=== PATIENT | female | born 1970 ===

== ENCOUNTER 2020-08-21 06:44 | Observation (INO) ==
--- NOTE | 2020-08-09 15:55 | PAT Medication Instructions ---
Medication Instructions Date of Service August 09, 2020 Home Medications lisinopril 5 mg tablet 5 mg PO QAM meloxicam 7.5 mg tablet 7.5 mg PO QAM omega-3 fatty acids 1,000 mg capsule 1,000 mg PO QAM omeprazole 10 mg capsule,delayed release 10 mg PO QAM phentermine 15 mg capsule 15 mg PO QAM ASK your surgeon for instructions meloxicam 7.5 mg tablet 7.5 mg PO QAM STOP taking 2 weeks before surgery (or as soon as possible if surgery is within 2 weeks) omega-3 fatty acids 1,000 mg capsule 1,000 mg PO QAM DO NOT take the morning of surgery lisinopril 5 mg tablet 5 mg PO QAM Take morning of surgery With a small sip of water, OTHERWISE NOTHING TO EAT OR DRINK AFTER MIDNIGHT: omeprazole 10 mg capsule,delayed release 10 mg PO QAM Other Notes STOP taking 5 days before surgery phentermine 15 mg capsule 15 mg PO QAM If you have any questions please call us at [phone] or [phone] or [phone] or [phone]
--- NOTE | 2020-08-11 09:29 | Anesthesiology Consultation ---
Date of Service August 11, 2020 Assessment & Plan (1) Encounter for pre-operative examination: - Per assessment on 08/11: Travel screen negative. No known COVID-19 positive contacts or current COVID-19 related symptoms. Surgeon arranging preop COVID testing (scheduled 08/15; LISA Perez). Awaiting results. - Check test AM DOS - Anxious RE: upcoming surgery/anesthesia- questions/concerns answered. Patient reassured/advised to contact me if further questions/concerns. Patient wishes to have heavier sedation/does not want to hear tools/surgery if possible Chart Review Chart Review: Acceptable Risk for Surgery and Patient seen in Pre Admission Testing Teaching & Discussion Pre-Anesthesia Teaching/Discussion Notes: Instructed NPO after midnight before surgery,except medications with 15 cc of water. Medication instructions provided according to the PAT guidelines. History Surgery Operation Date: 08/21/20 08:50 Proposed Procedures p Right Total Knee Arthroplasty - Bobo Ortega MD Height/Weight Height: 5 ft 4.5 in Weight: 106.1 kg Allergies Allergy/AdvReac Type Severity Reaction Status Date / Time BANDAIDS Allergy Unknown Skin Uncoded 08/21/20 06:57 soreness (with some bandaids) Medications Home Medications Medication Instructions Recorded Confirmed Last Taken lisinopril 5 mg tablet 5 mg PO QAM 07/25/20 08/21/20 08/20/20 08:00 meloxicam 7.5 mg tablet 7.5 mg PO QAM 07/25/20 08/21/20 08/20/20 08:00 omega-3 fatty acids 1,000 mg 1,000 mg PO QAM 07/25/20 08/21/20 08/11/20 08:00 capsule omeprazole 10 mg capsule,delayed 10 mg PO QAM 07/25/20 08/21/20 08/21/20 06:00 release phentermine 15 mg capsule 15 mg PO QAM 07/25/20 08/21/20 08/15/20 08:00 Tylenol 2 tab PO DAILY PRN 08/11/20 08/21/20 08/20/20 15:00 Active Medications Generic Name Dose Route Start Last Admin Trade Name Freq PRN Reason Stop Dose Admin Acetaminophen 1,000 mg 08/21/20 06:00 08/21/20 07:19 Acetaminophen 500 Mg Tab PO 08/21/20 18:00 1,000 mg PREOP ANNE Administration Famotidine 20 mg 08/21/20 06:00 08/21/20 07:20 Famotidine 20 Mg Tab PO 08/21/20 18:00 20 mg PREOP ANNE Administration Gabapentin 900 mg 08/21/20 06:00 08/21/20 07:19 Gabapentin 900 Mg Dose PO 08/21/20 18:00 900 mg PREOP ANNE Administration Lactated Ringer's 1,000 mls @ 60 mls/hr 08/21/20 06:00 08/21/20 07:30 Lr IV 08/21/20 22:39 Not Given .[id number] ANNE Lactated Ringer's 1,000 mls @ 15 mls/hr 08/21/20 06:00 08/21/20 07:17 Lr IV 08/21/20 18:00 15 mls/hr .Q24H ANNE Administration Scopolamine 1.5 mg 08/21/20 06:00 08/21/20 07:18 Scopolamine 1.5 Mg Tdsy TD 08/21/20 18:00 1.5 mg PREOP ANNE Administration Past Medical History Medical History Bilateral primary osteoarthritis of knee Chronic constipation in setting of increasing pain medication High blood pressure Obesity Exercise / Class Metabolic Activity II 4-5 Yardwork/Stairs/Walk up hill Past Family History Family History Mother Family history of diabetes mellitus Other Adopted person Past Surgical History Surgical History No history of previous surgery Past Anesthesia History No Hx of Anesthesia Complications and No Family Hx of Anesthesia Complications (Unknown family hx- adopted ) History of PONV No Hx of PONV and Hx of Motion Sickness Social History Smoking Status: Never smoker Do You Dip or Chew Tobacco: No Hx Alcohol Use: Yes alcohol intake frequency: holidays/special occasions only substance use type: does not use Review of Systems + snoring (improved with weight loss). No apnea events. Patient denies chest pain, shortness of breath, dyspnea on exertion, fever, chills, cough, wheezing, palpitations. Physical Exam Vital Signs Last Vital Signs Temp 36.9 C 08/21/20 07:12 Pulse 67 08/21/20 07:12 Resp 20 08/21/20 07:12 BP 140/73 08/21/20 07:12 Pulse Ox 97 08/21/20 07:12 VITALS BP 120/80 P 75 TEMP 98.1 SP02 100%RA RESP 16 PHYSICAL Full neck and c-spine range of motion. Full TMJ range of motion. TMD 3.5 finger breaths Mallampati Score 2 Dentition: intact, + cap on side Lungs: clear throughout to auscultation Cardiac: regular rate and rhythm, no murmurs noted Spine: normal Carotid arteries: negative bruit Extremities: no edema Testing Laboratory Results 08/11/20 10:27 08/11/20 10:27 PT 10.2 Seconds (9.0-12.0) 08/11/20 10:27 INR 1.0 (0.9-1.1) 08/11/20 10:27 APTT 24.4 Seconds (21.0-31.0) 08/11/20 10:27 Blood Type A Positive 08/11/20 10:27 Antibody Screen NEGATIVE 08/11/20 10:27 08/21/20 06:55 POC Ur Test NEG Electrocardiogram Date: 08/11/20 Findings: + NSR @ (72)
--- NOTE | 2020-08-11 11:01 | XRay Report ---
XR chest Pre-admission PA/Lat CLINICAL HISTORY: Preoperative evaluation. COMPARISON STUDY: No previous studies for comparison. FINDINGS: Lung volumes are normal. Lungs are clear. There is no pneumothorax or pleural effusion. Car diac size is normal. Mediastinal contours are normal. There is no evidence for pulmonary edema. IMPRESSION: No acute cardiopulmonary findings. ACT 112: Negative or not required by law. Electronically signed by: Bijan Tirado M.D. 08/11/2020 11:00 AM
[2020-08-11 11:10] LABS: Basophils # (auto) 0.06 K/uL (0-0.2); Basophils % (auto) 0.8 %; Eosinophils # (auto) 0.34 K/uL (0-0.5); Eosinophils % (auto) 4.4 %; Hematocrit (blood only) 42.2 % (37-47); Hemoglobin 13.8 g/dL (12.0-16.0); Immature Granulocytes # (auto) 0.01 K/uL (0.00-0.02); Immature Granulocytes % (auto) 0.1 %; Lymphocytes # (auto) 2.77 K/uL (1.2-3.4); Lymphocytes % (auto) 35.6 %; Mean Corpuscular Hemoglobin 26.5 pg (25-34); Mean Corpuscular Hgb Conc 32.7 g/dL (32-36); Mean Corpuscular Volume 81.2 fL (80-100); Mean Platelet Volume 9.9 fL (7.4-10.4); Monocytes % (auto) 10.3 %; Neutrophils # (auto) 3.81 K/uL (1.4-6.5); Neutrophils % (auto) 48.8 %; Platelet Count 398 K/uL (130-400); RDW Coefficient of Variation 14.1 % (11.5-14.5); RDW Standard Deviation 41.9 fL (36.4-46.3); White Blood Count 7.79 K/uL (4.8-10.8)
[2020-08-11 11:21] LABS: Partial Thromboplastin Ratio 0.9; Partial Thromboplastin Time 24.4 Seconds (21.0-31.0); Prothrombin Time 10.2 Seconds (9.0-12.0)
[2020-08-11 11:40] LABS: BUN Creatinine Ratio 17.1 (10-20); Calcium 9.4 mg/dl (8.5-10.1); Creatinine Clr Calc Pharmacy 117.8 ml/min; Est GFR (African American) 117.1; Est GFR (Non-African American) 101.1; Potassium 3.3 mmol/L (3.5-5.1)
--- NOTE | 2020-08-11 18:11 | Electrocardiogram Report ---
Test Reason : Blood Pressure : / mmHG Vent. Rate : 072 BPM Atrial Rate : 072 BPM P-R Int : 146 ms QRS Dur : 080 ms QT Int : 394 ms P-R-T Axes : 065 063 050 degrees QTc Int : 431 ms Normal sinus rhythm Normal ECG No previous ECGs available Confirmed by Ortega Freeman ([id number]) on 08/11/2020 6:11:21 PM Referred By: Bobo Ortega Confirmed By:Ortega Freeman
[~2020-08-21 06:44] MED LIST: ACETAMINOPHEN 500 MG TAB PO SCH; BUPIVACAINE 0.25% 30 ML VIAL ONE; BUPIVACAINE 0.5 % 5 MG/1 ML PF 10ML VIAL ONE; BUPIVACAINE LIPOSOME/PF 266 MG, BUPIVACAINE/EPINEPHRINE 50 ML, SODIUM CHLORIDE 0.9% 30 ... INFIL SCH; EPINEPHrine INJ 1 MG/ML AMP ONE; FAMOTIDINE 20 MG TAB PO SCH; GABAPENTIN 900 MG DOSE PO SCH; LR 500ML BOLUS, THEN 15ML/HR IV SCH; LR 60ML/HR IV SCH; TRANEXAMIC ACID 1,000 MG **IV Intra-op IV SCH; ceFAZolin 2000MG 2,000 MG/15 ML SYR IV SCH
--- NOTE | 2020-08-21 06:52 | History & Physical Bridge Note ---
Date of Service August 21, 2020 History & Physical Bridge Note I have examined the patient, reviewed the History & Physical and in the interval since the performance of the History & Physical I have noted the following changes of clinical significance: no changes noted
[2020-08-21] MEDS ORDERED: PROPOFOL IV EMULSION 10 MG/ML 20 ML VIAL IV ONE ×3 (07:52→09:54)
[2020-08-21] MEDS ORDERED: LIDOCAINE HCL 2% 2 ML VIAL/AMP(20MG/ML) INFIL ONE (07:52)
[2020-08-21] MEDS ORDERED: PHENYLEPHRINE 100MCG/ML 5ML SYR ONE (07:52)
[2020-08-21] MEDS ORDERED: MIDAZOLAM HCL 1 MG/ML 2ML VIAL ONE ×2 (07:52→09:37)
[2020-08-21] MEDS ORDERED: fentaNYL citrate 100 MCG/2 ML VIAL ONE (07:52)
[2020-08-21] MEDS ORDERED: ePHEDrine sulfate 50 MG/ML SYR ONE (07:52)
[2020-08-21] MEDS ORDERED: HYDROmorphone INJ 2 MG/ML SYR/VIAL IV PRN (08:15)
[2020-08-21] MEDS ORDERED: PROMETHAZINE HCL 12.5 MG in SODIUM CHLORIDE 0.9% 50 ML IV PRN (08:15)
[2020-08-21] MEDS ORDERED: ONDANSETRON INJ 2 MG/ML 2 ML VIAL IV PRN ×2 (08:15→11:56)
[2020-08-21] MEDS ORDERED: ePHEDrine sulfate 50 MG/ML AMP IV PRN (08:15)
[2020-08-21] MEDS ORDERED: fentaNYL citrate 100 MCG/2 ML VIAL IV PRN (08:15)
[2020-08-21] MEDS ORDERED: ATROPINE SULFATE 0.1 MG/ML 10ML SYR IV PRN (08:15)
[2020-08-21] MEDS ORDERED: BUPIVACAINE LIPOSOME 1.3% 266 MG/20 ML VIAL ONE (09:09)
[2020-08-21] MEDS ORDERED: EPINEPHrine INJ 1 MG/ML AMP ONE (09:09)
[2020-08-21] MEDS ORDERED: BACITRACIN INJ 50,000 UNIT VIAL ONE (09:09)
[2020-08-21] MEDS ORDERED: SODIUM CHLORIDE 0.9% PF 50 ML VIAL ONE (09:09)
[2020-08-21] MEDS ORDERED: BUPIVACAINE 0.25% 30 ML VIAL ONE (09:10)
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
--- NOTE | 2020-08-21 11:30 | XRay Report ---
XR knee RT 1 or 2V routine HISTORY: 50 years-old Female Surgical Post Op right knee total joint arthroplasty COMPARISON: Knee radiographs 07/25/2020 TECHNIQUE: 2 views of the right knee FINDINGS: Right knee total joint arthroplasty and patella resurfacing demonstrates satisfactory alignment witho ut acute fracture line expected opaque foreign body. Anterior midline skin joselin are noted along wi th expected postsurgical soft tissue swelling and deep tissue air with surgical drainage catheter. IMPRESSION: Right knee total joint arthroplasty and patella resurfacing with expected postoperative c hanges. ACT 112: Negative or not required by law. The above report was generated using voice recognition software. It may contain grammatical, syntax o r spelling errors. Electronically signed by: Nadeem Kate M.D. 08/21/2020 11:28 AM
[2020-08-21] MEDS ORDERED: ALUMINUM/MAGNESIUM SUSP 30 ML UDC PO PRN (11:56)
[2020-08-21] MEDS ORDERED: bisacodyL 10 MG SUPP PR PRN (11:56)
[2020-08-21] MEDS ORDERED: METOCLOPRAMIDE HCL INJ 5 MG/ML 2 ML VIAL IV PRN (11:56)
[2020-08-21] MEDS ORDERED: diphenhydrAMINE Capsule 25 MG CAP PO PRN (11:56)
[2020-08-21] MEDS ORDERED: NALOXONE HCL 0.4 MG/1 ML VIAL/CARP IV PRN (11:56)
[2020-08-21] MEDS ORDERED: MAGNESIUM HYDROXIDE SUSP 30 ML UDC PO PRN (11:56)
[2020-08-21] MEDS ORDERED: HYDROmorphone INJ 0.5 MG/0.5 ML SYR IV PRN (11:56)
--- NOTE | 2020-08-21 11:58 | Anesthesiology Progress Note ---
Date of Service August 21, 2020 Anesthesia Post Procedure Vital Signs Vital Signs: Temp Pulse Pulse Resp BP Pulse Ox 08/21/20 11:35 61 17 104/61 96 08/21/20 11:25 36.4 C L 61 18 104/57 L 99 08/21/20 11:15 69 16 100/59 L 100 08/21/20 11:09 36.4 C L 69 18 88/51 L 97 08/21/20 07:12 36.9 C 67 20 140/73 97 Transfer of Care Handoff Completed per policy Notes Mental Status: alert / awake / arousable and participated in evaluation Patient Amnestic to Procedure: Yes Nausea / Vomiting: adequately controlled Pain: adequately controlled Airway Patency, RR, SpO2: stable & adequate BP & HR: stable & adequate Hydration State: stable & adequate Anesthetic Complications: no major complications apparent and Pt Satisfied with anesthetic care
[2020-08-21] MEDS: KETOROLAC 30 MG/ML VIAL IV SCH ×2 (12:48→19:53)
[2020-08-21] MEDS: ACETAMINOPHEN 500 MG TAB PO SCH ×2 (13:53→21:47)
[2020-08-21] MEDS: Scopolamine CHECK PATCH PLACEMENT SCH (15:12)
[2020-08-21] MEDS: SODIUM CHLORIDE 0.9% 1000ML 1,000 ML IV SCH ×2 (15:12→21:46)
[2020-08-21] MEDS: oxyCODONE HCL IR 5 MG TAB (IMMEDIATE RELEASE) PO PRN ×2 (15:49→16:36)
[2020-08-21] MEDS: FERROUS GLUCONATE 324 MG TAB PO SCH (16:38)
[2020-08-21] MEDS: ASCORBIC ACID 500 MG TAB PO SCH (16:39)
[2020-08-21] MEDS: ceFAZolin 2000MG 2,000 MG/15 ML SYR IV SCH (16:44)
[2020-08-21] MEDS ORDERED: TRANEXAMIC ACID / 0.7% NACL 1,000 MG/100 ML BAG IV SCH (17:06)
[2020-08-21] MEDS: TAPENTADOL HCL ER 50 MG TABCR PO SCH (21:46)
[2020-08-21] MEDS: SENNA 8.6 MG TAB PO SCH (21:46)
[2020-08-21] MEDS: DOCUSATE SODIUM 100 MG CAP PO SCH (21:46)
[2020-08-21] MEDS: ASPIRIN 81 MG ECTAB PO SCH (21:46)
[2020-08-22] MEDS: ceFAZolin 2000MG 2,000 MG/15 ML SYR IV SCH (01:45)
[2020-08-22] MEDS: KETOROLAC 30 MG/ML VIAL IV SCH ×4 (01:45→17:41)
[2020-08-22] MEDS: Scopolamine CHECK PATCH PLACEMENT SCH ×3 (01:45→15:13)
[2020-08-22] MEDS: ACETAMINOPHEN 500 MG TAB PO SCH ×3 (05:59→21:37)
[2020-08-22] MEDS: SODIUM CHLORIDE 0.9% 1000ML 1,000 ML IV SCH (06:00)
[2020-08-22 06:13] LABS: Hematocrit (blood only) 34.3 % (37-47); Hemoglobin 11.3 g/dL (12.0-16.0); Mean Corpuscular Hemoglobin 26.7 pg (25-34); Mean Corpuscular Hgb Conc 32.9 g/dL (32-36); Mean Corpuscular Volume 80.9 fL (80-100); Platelet Count 259 K/uL (130-400); RDW Coefficient of Variation 14.2 % (11.5-14.5); RDW Standard Deviation 41.8 fL (36.4-46.3); Red Blood Count 4.24 M/uL (4.2-5.4); White Blood Count 9.47 K/uL (4.8-10.8)
[2020-08-22 06:46] LABS: Creatinine Clr Calc Pharmacy 165.5 ml/min; Est GFR (African American) 130.7; Est GFR (Non-African American) 112.8; Potassium 3.4 mmol/L (3.5-5.1)
[2020-08-22] MEDS ORDERED: POTASSIUM CHLORIDE CRTAB 20 MEQ TABCR PO ONE ×2 (06:52→18:00)
[2020-08-22] MEDS: MULTIVITAMIN TAB PO SCH (07:39)
[2020-08-22] MEDS: ASCORBIC ACID 500 MG TAB PO SCH ×2 (07:39→16:55)
[2020-08-22] MEDS: DOCUSATE SODIUM 100 MG CAP PO SCH ×2 (07:39→21:38)
[2020-08-22] MEDS: OMEGA-3 (PURIFIED FISH OIL) 1 GM CAP PO SCH (07:39)
[2020-08-22] MEDS: ASPIRIN 81 MG ECTAB PO SCH ×2 (07:40→21:37)
[2020-08-22] MEDS: lisinopril 5 MG TAB PO SCH (07:40)
[2020-08-22] MEDS: PANTOprazole 40 MG TAB PO SCH (07:41)
[2020-08-22] MEDS ORDERED: dexAMETHasone 4 MG TAB PO SCH (08:00)
--- NOTE | 2020-08-22 08:00 | Anesthesiology Progress Note ---
Date of Service August 22, 2020 Anesthesia Post Procedure Vital Signs Vital Signs: Temp Pulse Pulse Pulse Resp BP BP 08/22/20 07:17 36.8 C 58 L 16 120/77 08/22/20 02:54 36.6 C 60 16 114/74 08/21/20 22:03 36.6 C 60 16 121/76 08/21/20 19:49 36.4 C L 61 16 103/63 08/21/20 16:01 36.4 C L 59 L 18 128/77 08/21/20 15:08 18 113/77 08/21/20 13:52 36.3 C L 57 L 18 137/86 08/21/20 12:42 57 L 16 125/86 08/21/20 12:16 36.0 C L 57 L 16 114/70 08/21/20 11:45 36.3 C L 57 L 16 110/71 08/21/20 11:35 61 17 104/61 08/21/20 11:25 36.4 C L 61 18 104/57 L 08/21/20 11:15 69 16 100/59 L 08/21/20 11:09 36.4 C L 69 18 88/51 L Pulse Ox 08/22/20 07:17 96 08/22/20 02:54 97 08/21/20 22:03 97 08/21/20 19:49 97 08/21/20 16:01 100 08/21/20 15:08 100 08/21/20 13:52 97 08/21/20 12:42 99 08/21/20 12:16 100 08/21/20 11:45 98 08/21/20 11:35 96 08/21/20 11:25 99 08/21/20 11:15 100 08/21/20 11:09 97 Pain Intensity Right Knee: Pain Intensity: 5 Notes Mental Status: alert / awake / arousable and participated in evaluation Patient Amnestic to Procedure: Yes Nausea / Vomiting: adequately controlled Pain: adequately controlled Airway Patency, RR, SpO2: stable & adequate Hydration State: stable & adequate Neuraxial Anesthesia: was administered and sensory block is resolving Anesthetic Complications: no major complications apparent and Pt Satisfied with anesthetic care
[2020-08-22] MEDS: TAPENTADOL HCL ER 50 MG TABCR PO SCH ×2 (08:17→21:37)
[2020-08-22] MEDS: FERROUS GLUCONATE 324 MG TAB PO SCH ×2 (08:17→16:55)
[2020-08-22] MEDS ORDERED: PHENTERMINE 15 MG PO SCH (09:00)
--- NOTE | 2020-08-22 09:36 | Progress Notes ---
DATE: 08/22/2020 SUBJECTIVE: A 50-year-old white female postop day 1 from right knee replacement. She is doing okay. Having a moderate amount of pain. She is struggling getting around a bit. Leg feels weak. No chest pain or shortness of breath. Not feeling dizzy or lightheaded. OBJECTIVE: VITAL SIGNS: Temperature 36.8. Vital signs stable. GENERAL: Shows a pleasant, middle-aged female. She was using a walker to get into the bathroom when I visited her this morning. She is struggling a bit, but doing acceptably well with some assistance. LUNGS: Clear to auscultation. HEART: Has a regular rate and rhythm. ABDOMEN: Soft, nontender, nondistended. EXTREMITIES: Grossly neurovascularly intact except as follows. Examination of the right leg reveals the dressing to be clean, dry and intact. She can dorsiflex and plantarflex her foot appropriately. She is neurologically intact. LABORATORY DATA: Hemoglobin is 11.3. Hematocrit 34.3. Electrolytes are stable. Potassium is little low at 3.4. ASSESSMENT: A 50-year-old white female postop day 1 from right knee replacement, doing okay. Struggling a little bit with pain and function, which is not too unusual. PLAN: 1. DVT prophylaxis including thigh-high TEDs, SCDs, and aspirin twice a day. 2. PT/OT. Weight bear as tolerated. Right total knee protocol. 3. Pain control, doing okay with current pain regimen. 4. Hypokalemia. We will supplement her potassium. 5. Disposition: She is planning to be discharged to home with some home health once adequately recovered. She is hoping to stay in the hospital today with discharge tomorrow.
[2020-08-22] MEDS: oxyCODONE HCL IR 5 MG TAB (IMMEDIATE RELEASE) PO PRN ×3 (09:44→21:37)
[2020-08-22] MEDS: SENNA 8.6 MG TAB PO SCH (21:37)
[2020-08-23] MEDS: Scopolamine CHECK PATCH PLACEMENT SCH ×2 (00:12→07:22)
[2020-08-23] MEDS: KETOROLAC 30 MG/ML VIAL IV SCH ×2 (00:12→06:23)
[2020-08-23] MEDS: ACETAMINOPHEN 500 MG TAB PO SCH (06:23)
[2020-08-23] MEDS: PANTOprazole 40 MG TAB PO SCH (07:21)
[2020-08-23 07:46] LABS: BUN Creatinine Ratio 15.3 (10-20); Calcium 9.4 mg/dl (8.5-10.1); Creatinine Clr Calc Pharmacy 132.4 ml/min; Est GFR (African American) 121.5; Est GFR (Non-African American) 104.8; Potassium 3.8 mmol/L (3.5-5.1)
[2020-08-23] MEDS: OMEGA-3 (PURIFIED FISH OIL) 1 GM CAP PO SCH (07:46)
[2020-08-23] MEDS: lisinopril 5 MG TAB PO SCH (07:47)
[2020-08-23] MEDS: oxyCODONE HCL IR 5 MG TAB (IMMEDIATE RELEASE) PO PRN (07:47)
[2020-08-23] MEDS: MULTIVITAMIN TAB PO SCH (07:47)
[2020-08-23] MEDS: ASPIRIN 81 MG ECTAB PO SCH (07:48)
[2020-08-23] MEDS: ASCORBIC ACID 500 MG TAB PO SCH (07:48)
[2020-08-23] MEDS: DOCUSATE SODIUM 100 MG CAP PO SCH (07:48)
[2020-08-23] MEDS: FERROUS GLUCONATE 324 MG TAB PO SCH (07:48)
--- NOTE | 2020-08-23 08:25 | Progress Notes ---
DATE: 08/23/2020 SUBJECTIVE: A 50-year-old female postop day 2 from right knee replacement. She is doing much better today. Pain is improved. Therapy went okay. Had a pretty good night. No chest pain or shortness of breath. She is doing okay with the pain medicines. OBJECTIVE: VITAL SIGNS: Temperature 36.7. Vital signs stable. GENERAL: Shows a pleasant, middle-aged female. She is sitting up in bed, looks pretty comfortable this morning. EXTREMITIES: Examination of the right leg reveals the leg to be well aligned. Dressing is clean, dry and intact. No significant drainage. Calf is soft and supple. She is neurologically intact. ASSESSMENT: A 50-year-old female postop day 2 from right knee replacement, doing pretty well. Pain is controlled. PLAN: 1. DVT prophylaxis including thigh-high TEDs, SCDs, and aspirin twice a day. 2. PT/OT. Weight bear as tolerated. Right total knee protocol. 3. Pain control, doing okay with current pain regimen. 4. Disposition: She is planning to be discharged to home with some home health likely later today.
[2020-08-23] MEDS: TAPENTADOL HCL ER 50 MG TABCR PO SCH (09:49)
--- NOTE | 2020-08-27 09:38 | Discharge Summary ---
Date of Service August 27, 2020 Discharge Data Consultations 08/21/20 11:56 Consult Case Management - Discharge Planning Routine Procedures Performed Operation Date: 08/21/20 08:50 Actual Procedures p Right Total Knee Arthroplasty(Right) - Bobo Ortega MD Hospital Course (1) Status post total right knee replacement: This patient is a 50 year old female admitted on 08/21/20 and underwent total knee arthroplasty. She tolerated the procedure well and there were no complications. Transferred to the PACU post op and later to the orthopedic floor for further care. She was given ancef for antibiotic prophylaxis. She was also given ALISHA stockings, SCDs, and aspirin for DVT prophylaxis. Hemoglobin, hem atocrit, and vital signs were monitored during her hospital stay and remained stable. Did not require any blood transfusions. There were no complications during her hospital stay. By post op day #2 the patient was tolerating a regular diet, pain was reasonably controlled with oral pain medicine, and she was participating in physical therapy. On post op day #2 the patient was discharged home and set up with home health care. She was given printed discharge instructions including prescriptions for extra strength tylenol, aspirin, and oxycodone. Continue physical therapy, weight bearing as tolerated. Continue ALISHA stockings. Follow up approximately 2 weeks post op or sooner if there are problems or concerns. Coding Level of Care Code None Diagnoses Status post total right knee replacement Z96.651
== END 2020-08-23 10:43 | disposition home health service (06) ==
LOC: 3E 06:44 → ASU 06:44